=== PATIENT | female | born 1950 | race Caucasian/White ===

== ENCOUNTER 2020-05-24 17:26 | Emergency (ER) | payer MEDICARE, MEDICAID ==
[~2020-05-24] VITALS: Ht 154.9 cm; Wt 70.5 kg
[2020-05-24 17:28] VITALS: BP 179/96
[2020-05-24] MEDS ORDERED: METF-960 PO (17:31)
[2020-05-24] MEDS ORDERED: SERT25TA5 PO (17:34)
[2020-05-24] MEDS ORDERED: ATOR40TA71 PO (17:34)
[2020-05-24] MEDS ORDERED: BRIM10DR10 OU (17:34)
[2020-05-24] MEDS ORDERED: GLIP5TAB11 PO (17:34)
[2020-05-24] MEDS ORDERED: LINA5TAB PO (17:34)
[2020-05-24] MEDS ORDERED: AMLO5TAB66 PO (17:34)
== END 2020-05-24 18:47 | disposition home or self-care (01) ==
LOC: EMS 17:26
DX: E11.65 Type 2 diabetes mellitus with hyperglycemia (principal); F32.9 Major depressive disorder, single episode, unspecified; Z79.899 Other long term (current) drug therapy